=== PATIENT | male | born 1950 | race Caucasian/White ===

== ENCOUNTER 2019-03-26 13:52 | Observation (INO) | payer MEDICARE ==
--- NOTE | 2019-03-26 14:23 | ED ---
General Adult HPI - General Chief complaint: Chest Pain Stated complaint: Chest pain Time Seen by Provider: 03/26/19 14:09 Source: patient, RN notes reviewed, old records reviewed Mode of arrival: ambulatory Limitations: no limitations - History of Present Illness Initial comments: 68-year-old male presenting for evaluation of intermittent chest pain. Patient's symptoms have been ongoing for the past 24-48 hours. He is having episodic left-sided chest pain. This is nonexertional. Nonradiating. Described as sharp in nature lasting usually just seconds. Not worse with deep inspiration. He does have a mild cough which she's had for some time. He states he's had similar symptoms within the past several months and has not seen a physician about these symptoms. Denies fever but has had night sweats daily for several months. Denies weight loss. Denies lower extremity pain or swelling. No known history of CAD. - Related Data Home Medications Medication Instructions Recorded Confirmed No Known Home Medications 03/26/19 03/26/19 Allergies Allergy/AdvReac Type Severity Reaction Status Date / Time No Known Allergies Allergy Verified 03/26/19 14:54 Review of Systems ROS Statement: Those systems with pertinent positive or pertinent negative responses have been documented in the HPI. ROS Other: All systems not noted in ROS Statement are negative. Past Medical History Past Medical History: No Reported History History of Any Multi-Drug Resistant Organisms: None Reported Past Surgical History: Hernia Repair Past Psychological History: No Psychological Hx Reported Smoking Status: Current every day smoker Past Alcohol Use History: Daily Past Drug Use History: None Reported General Exam Limitations: no limitations General appearance: alert, in no apparent distress Head exam: Present: atraumatic, normocephalic Eye exam: Present: normal appearance, PERRL ENT exam: Present: normal exam Neck exam: Present: normal inspection. Absent: tenderness, meningismus Respiratory exam: Present: normal lung sounds bilaterally. Absent: respiratory distress, wheezes, rhonchi Cardiovascular Exam: Present: regular rate, normal rhythm, normal heart sounds GI/Abdominal exam: Present: soft. Absent: distended, tenderness, guarding Extremities exam: Present: normal inspection, normal capillary refill. Absent: pedal edema, calf tenderness Neurological exam: Present: alert, oriented X3 Psychiatric exam: Present: normal affect, normal mood Skin exam: Present: warm, dry, intact. Absent: cyanosis, diaphoretic Course Vital Signs 03/26/19 03/26/19 03/26/19 13:53 14:15 14:30 Temperature 97.9 F Pulse Rate 74 71 Pulse Rate [ 72 [employer] ] Respiratory 9 L 18 Rate Blood Pressure 173/91 152/103 O2 Sat by Pulse 98 95 Oximetry EKG Findings - EKG Comments: EKG Findings:: EKG: Normal sinus rhythm, rate of 67, NJ interval 162, QRS duration 86, QTC 460, no ST segment elevation Medical Decision Making - Medical Decision Making 68-year-old male with intermittent chest pain. Pain is described as atypical. Patient is several risk factors, workup initiated emergency department. Patient's chest x-ray negative for pneumothorax or focal pneumonia. He has a normal CBC and normal CMP. He has an initial troponin which is negative. Has a mildly elevated d-dimer is 0.73. 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 Patient's pain is atypical however he has several risk factors. He will be kept in observation for serial cardiac enzymes, telemetry, cardiology consultation. Case discussed with admitting physician Dr. Muñiz - Lab Data Result diagrams: 03/26/19 14:30 03/26/19 14:30 Lab Results 03/26/19 03/26/19 03/26/19 Range/Units 14:30 14:30 14:30 WBC 6.5 (3.8-10.6) k/uL RBC 4.32 (4.30-5.90) m/uL Hgb 15.8 (13.0-17.5) gm/dL Hct 45.9 (39.0-53.0) % MCV 106.2 H (80.0-100.0) fL MCH 36.5 H (25.0-35.0) pg MCHC 34.4 (31.0-37.0) g/dL RDW 13.6 (11.5-15.5) % Plt Count 256 (150-450) k/uL Neutrophils % 57 % Lymphocytes % 28 % Monocytes % 8 % Eosinophils % 3 % Basophils % 1 % Neutrophils # 3.7 (1.3-7.7) k/uL Lymphocytes # 1.8 (1.0-4.8) k/uL Monocytes # 0.5 (0-1.0) k/uL Eosinophils # 0.2 (0-0.7) k/uL Basophils # 0.1 (0-0.2) k/uL Macrocytosis Moderate PT 9.7 (9.0-12.0) sec INR 0.9 (<1.2) APTT 25.3 (22.0-30.0) sec D-Dimer 0.73 H (<0.60) mg/L FEU Sodium 140 (137-145) mmol/L Potassium 4.3 (3.5-5.1) mmol/L Chloride 111 H (98-107) mmol/L Carbon Dioxide 20 L (22-30) mmol/L Anion Gap 9 mmol/L BUN 18 (9-20) mg/dL Creatinine 1.07 (0.66-1.25) mg/dL Est GFR (CKD-EPI)AfAm 84 (>60 ml/min/1.73 sqM) Est GFR (CKD-EPI)NonAf 73 (>60 ml/min/1.73 sqM) Glucose 110 H (74-99) mg/dL Calcium 9.8 (8.4-10.2) mg/dL Magnesium 2.2 (1.6-2.3) mg/dL Total Bilirubin 1.0 (0.2-1.3) mg/dL AST 58 (17-59) U/L ALT 64 (21-72) U/L Alkaline Phosphatase 89 (38-126) U/L Troponin I (0.000-0.034) ng/mL NT-Pro-B Natriuret Pep pg/mL Total Protein 7.6 (6.3-8.2) g/dL Albumin 4.6 (3.5-5.0) g/dL Lipase 315 H (23-300) U/L 03/26/19 03/26/19 Range/Units 14:30 14:30 WBC (3.8-10.6) k/uL RBC (4.30-5.90) m/uL Hgb (13.0-17.5) gm/dL Hct (39.0-53.0) % MCV (80.0-100.0) fL MCH (25.0-35.0) pg MCHC (31.0-37.0) g/dL RDW (11.5-15.5) % Plt Count (150-450) k/uL Neutrophils % % Lymphocytes % % Monocytes % % Eosinophils % % Basophils % % Neutrophils # (1.3-7.7) k/uL Lymphocytes # (1.0-4.8) k/uL Monocytes # (0-1.0) k/uL Eosinophils # (0-0.7) k/uL Basophils # (0-0.2) k/uL Macrocytosis PT (9.0-12.0) sec INR (<1.2) APTT (22.0-30.0) sec D-Dimer (<0.60) mg/L FEU Sodium (137-145) mmol/L Potassium (3.5-5.1) mmol/L Chloride (98-107) mmol/L Carbon Dioxide (22-30) mmol/L Anion Gap mmol/L BUN (9-20) mg/dL Creatinine (0.66-1.25) mg/dL Est GFR (CKD-EPI)AfAm (>60 ml/min/1.73 sqM) Est GFR (CKD-EPI)NonAf (>60 ml/min/1.73 sqM) Glucose (74-99) mg/dL Calcium (8.4-10.2) mg/dL Magnesium (1.6-2.3) mg/dL Total Bilirubin (0.2-1.3) mg/dL AST (17-59) U/L ALT (21-72) U/L Alkaline Phosphatase (38-126) U/L Troponin I <0.012 (0.000-0.034) ng/mL NT-Pro-B Natriuret Pep 115 pg/mL Total Protein (6.3-8.2) g/dL Albumin (3.5-5.0) g/dL Lipase (23-300) U/L Disposition Clinical Impression: Chest pain Disposition: ADMITTED IP TO THIS HOSP Condition: Stable Is patient prescribed a controlled substance at d/c from ED?: No Referrals: Jenny Mae MD [Primary Care Provider] - 1-2 days Decision to Admit Reason: Admit from EC Decision Date: 03/26/19 Decision Time: 17:24
[2019-03-26 14:48] LABS: Basophils # (A) 0.1 k/uL (0-0.2); Basophils % (A) 1 %; Eosinophils # (A) 0.2 k/uL (0-0.7); Eosinophils % (A) 3 %; HCT 45.9 % (39.0-53.0); HGB 15.8 gm/dL (13.0-17.5); Lymphocytes # (A) 1.8 k/uL (1.0-4.8); Lymphocytes % (A) 28 %; MCH 36.5 pg (25.0-35.0); MCHC 34.4 g/dL (31.0-37.0); MCV 106.2 fL (80.0-100.0); Macrocytosis Moderate; Mean Platelet Volume 7.3; Monocytes # (A) 0.5 k/uL (0-1.0); Monocytes % (A) 8 %; Neutrophils # (A) 3.7 k/uL (1.3-7.7); Neutrophils % (A) 57 %; Platelet Count 256 k/uL (150-450); RBC 4.32 m/uL (4.30-5.90); RDW 13.6 % (11.5-15.5); WBC 6.5 k/uL (3.8-10.6)
--- NOTE | 2019-03-26 14:52 | XR ---
EXAMINATION TYPE: XR chest 2V DATE OF EXAM: 03/26/2019 COMPARISON: NONE TECHNIQUE: PA and lateral views submitted. HISTORY: Chest pain FINDINGS: The lungs are clear and there is no pneumothorax, pleural effusion, or focal pneumonia. Biapical pl eural thickening. No overt failure. Hyperinflation suggests COPD. Heart size normal. IMPRESSION: 1. No acute process.
[2019-03-26 14:53] VITALS: RESP 18
[2019-03-26 15:06] LABS: INR 0.9 (<1.2); Partial Thromboplastin Time 25.3 sec (22.0-30.0); Prothrombin Time 9.7 sec (9.0-12.0)
[2019-03-26 15:11] LABS: Albumin 4.6 g/dL (3.5-5.0); Calcium 9.8 mg/dL (8.4-10.2); Magnesium 2.2 mg/dL (1.6-2.3); Potassium 4.3 mmol/L (3.5-5.1); Total Protein 7.6 g/dL (6.3-8.2)
[2019-03-26 15:15] LABS: D-Dimer 0.73 mg/L FEU (<0.60)
--- NOTE | 2019-03-26 16:46 | CT ---
EXAMINATION TYPE: CT angio chest DATE OF EXAM: 03/26/2019 COMPARISON: None HISTORY: Shortness of breath and cough CT DLP: 373.6 mGycm Automated exposure control for dose reduction was used. CONTRAST: Performed with IV Contrast, patient injected with 100 mL of Isovue 370. There are 3-D post processed images. There is some poorly marginated 2.5 cm stellate infiltrate at the right lung apex. There is no pulmon erickson mass. There is no mediastinal adenopathy. Thoracic aorta appears intact without evidence of disse ction. Ascending aorta measures 3.9 cm. There are no hilar masses. There is normal contrast opacifica tion of the pulmonary arteries. There are no filling defects. The bony thorax is intact. There is no pleural effusion. There is no pericardial effusion. Upper abdominal soft tissues are intact. IMPRESSION: No evidence of pulmonary embolism. Stellate infiltrate right upper lobe at the apex could relate to s carring. Follow-up exam recommended to show long-term stability or clearing. Borderline aneurysm of the aortic arch.
[2019-03-26] MEDS ORDERED: ASPIRIN 325 MG TAB PO STA (17:21)
[2019-03-26] MEDS ORDERED: ONDANSETRON 4 MG/2 ML VIAL IVP PRN (17:21)
[2019-03-26] MEDS ORDERED: MORPHINE SULFATE 4 MG/ML SYRINGE IV PRN (17:21)
[2019-03-26] MEDS ORDERED: NALOXONE 0.4 MG/ML 1 ML VIAL IV PRN (17:21)
[2019-03-26] MEDS ORDERED: ACETAMINOPHEN TAB 325 MG TAB PO PRN (17:21)
[2019-03-26] MEDS ORDERED: LORazepam 2 MG/ML INJ IV PRN ×3 (19:20)
--- NOTE | 2019-03-27 08:38 | P.CRDCN ---
History of Present Illness Consult reason: chest pain History of present illness: This is Dr. Lamb dictating a consult on this patient The patient was interviewed and examined by me IMPRESSION / ASSESSMENT: Intermittent brief atypical chest discomfort him a very fleeting in nature lasting for seconds No associated symptoms No abdominal symptoms Regular smoker Regular heavy alcohol consumption Abnormal lipase Normal twelve-lead ECG 2 Normal cardiac enzymes Denies diabetes or hypertension, follows with Dr. Mae Ascending aorta 3.9 cm node dissection PLAN: Repeat lipase GI workup him a evaluate pancreas Outpatient cardiac workup Smoking cessation Discontinue regular alcohol consumption Hemoglobin A1c Check lipid panel Discussed with the patient Outpatient follow-up with Dr. Lamb HPI Impression presenting with intermittent fleeting chest discomfort left precordial off and on very brief each time and no associated symptoms No dizziness lightheadedness no shortness of breath no upper back discomfort No GI symptoms ROS: No fever chills or rigors, no cough, phlegm or expectoration, no nausea, vomiting or diarrhea, no hematuria, dysuria, no musculoskeletal complaints, no strokes or seizures, no skin lesions. EXAMINATION: Blood pressure 126/77 mmHg pulse rate in the 60s afebrile bruits no JVD no thyromegaly Normal heart sounds Our breath sounds no rhonchi no crackles Abdomen normal exam soft nontender Normal heart sounds no murmurs or gallop. REVIEW OF LABS, ECG & MEDICAL DATA hemoglobin 15.8, electrolytes normal, BUN/creatinine normal Cardiac enzymes 3 Number ECGs 2 Abnormal lipase Past Medical History Past Medical History: No Reported History History of Any Multi-Drug Resistant Organisms: None Reported Past Surgical History: Hernia Repair Past Psychological History: No Psychological Hx Reported Smoking Status: Current every day smoker Past Alcohol Use History: Daily Past Drug Use History: None Reported Medications and Allergies Home Medications Medication Instructions Recorded Confirmed Type No Known Home Medications 03/26/19 03/26/19 History Allergies Allergy/AdvReac Type Severity Reaction Status Date / Time No Known Allergies Allergy Verified 03/26/19 14:54 Physical Exam Vitals: Vital Signs Temp Pulse Pulse Pulse Resp BP BP 03/27/19 07:23 97.7 F 59 L 18 159/95 03/27/19 04:00 97.9 F 58 L 18 108/67 03/27/19 03:11 18 03/26/19 23:29 18 03/26/19 23:09 97.6 F 60 18 126/77 03/26/19 20:00 18 03/26/19 18:31 97.8 F 69 18 163/100 03/26/19 17:30 97.8 F 60 18 150/90 03/26/19 17:00 59 L 145/91 03/26/19 16:30 145/91 03/26/19 16:00 64 151/96 03/26/19 15:30 151/96 03/26/19 15:00 65 152/103 03/26/19 14:30 71 18 152/103 03/26/19 14:15 72 03/26/19 13:53 97.9 F 74 9 L 173/91 Pulse Ox 03/27/19 07:23 96 03/27/19 04:00 99 03/27/19 03:11 03/26/19 23:29 03/26/19 23:09 97 03/26/19 20:00 03/26/19 18:31 98 03/26/19 17:30 97 03/26/19 17:00 03/26/19 16:30 03/26/19 16:00 03/26/19 15:30 03/26/19 15:00 97 03/26/19 14:30 95 03/26/19 14:15 03/26/19 13:53 98 Intake and Output 03/26/19 03/27/19 03/27/19 22:59 06:59 14:59 Other: Voiding Method Toilet Toilet # Voids 1 1 Weight 94.03 kg Results 03/26/19 14:30 03/26/19 14:30 Cardiac Enzymes 03/26/19 03/26/19 03/26/19 Range/Units 14:30 14:30 19:55 AST 58 (17-59) U/L Troponin I <0.012 <0.012 (0.000-0.034) ng/mL 03/27/19 Range/Units 02:42 AST (17-59) U/L Troponin I <0.012 (0.000-0.034) ng/mL Coagulation 03/26/19 Range/Units 14:30 PT 9.7 (9.0-12.0) sec APTT 25.3 (22.0-30.0) sec CBC 03/26/19 Range/Units 14:30 WBC 6.5 (3.8-10.6) k/uL RBC 4.32 (4.30-5.90) m/uL Hgb 15.8 (13.0-17.5) gm/dL Hct 45.9 (39.0-53.0) % Plt Count 256 (150-450) k/uL Comprehensive Metabolic Panel 03/26/19 Range/Units 14:30 Sodium 140 (137-145) mmol/L Potassium 4.3 (3.5-5.1) mmol/L Chloride 111 H (98-107) mmol/L Carbon Dioxide 20 L (22-30) mmol/L BUN 18 (9-20) mg/dL Creatinine 1.07 (0.66-1.25) mg/dL Glucose 110 H (74-99) mg/dL Calcium 9.8 (8.4-10.2) mg/dL AST 58 (17-59) U/L ALT 64 (21-72) U/L Alkaline Phosphatase 89 (38-126) U/L Total Protein 7.6 (6.3-8.2) g/dL Albumin 4.6 (3.5-5.0) g/dL Current Medications Generic Name Dose Route Start Last Admin Trade Name Freq PRN Reason Stop Dose Admin Acetaminophen 650 mg 03/26/19 17:21 Tylenol Tab PO Q6HR PRN Mild Pain or Fever > 100.5 Aspirin 325 mg 03/27/19 09:00 Aspirin PO DAILY NALINI Lorazepam 1 mg 03/26/19 19:20 Ativan IV Q2HR PRN CIWA 8 or 9 Lorazepam 1 mg 03/26/19 19:20 Ativan IV Q1HR PRN CIWA 10 to 15 Lorazepam 2 mg 03/26/19 19:20 Ativan IV 03/28/19 19:20 Q10M PRN CIWA 16 or higher Morphine Sulfate 4 mg 03/26/19 17:21 Morphine Sulfate (Inj) IV Q4HR PRN Severe Pain Naloxone HCl 0.2 mg 03/26/19 17:21 Narcan IV Q2M PRN Opioid Reversal Ondansetron HCl 4 mg 03/26/19 17:21 Zofran IVP Q8HR PRN Nausea And Vomiting Intake and Output 03/26/19 03/27/19 03/27/19 22:59 06:59 14:59 Other: Voiding Method Toilet Toilet # Voids 1 1 Weight 94.03 kg 03/26/19 14:30 03/26/19 14:30
[2019-03-27] MEDS ORDERED: ASPIRIN 325 MG TAB PO SCH (09:00)
[2019-03-27 09:51] LABS: Cholesterol 229 mg/dL (<200); HDL Cholesterol 55 mg/dL (40-60); LDL Cholesterol,Calculated 146 mg/dL (0-99); Triglycerides 141 mg/dL (<150)
[2019-03-27 15:56] VITALS: BP 144/82; PULSE 53; TEMP 98.1
--- NOTE | 2019-03-27 18:17 | P.HPIM ---
History of Present Illness H&P Date: 03/27/19 Chief Complaint: Intermittent chest pain Mr. Dale is a 68-year-old male with no significant past medical history coming in with a chief complaint of intermittent chest pain. Patient states that he has been chest pain on and off for the past 24-48 hours. Mostly in the left side of the chest, nonradiating. Patient described as a sharp pain lasting only for a few seconds. No radiation to the left shoulder on the left jaw. Not associated with nausea vomiting or diaphoresis. Patient denies having any cough or difficulty in breathing. Patient denies having any fevers chills or rigors, no night sweats. Patient denies having any swelling of his lower extremities. Patient has history of alcohol dependence. He drinks at least 4-5 times a week. Patient's last drink was on the morning of admission. In the emergency department patient had chest x-ray that was unremarkable, troponins that are less than 0.012. As the d-dimer was slightly elevated at 0.73 patient had a CTA of the chest that was negative for any pulmonary embolus. There is mild elevation of his lipase at 315. Patient denied having any other active complaints. Review of Systems REVIEW OF SYSTEMS: PSYCH: Normal psychiatric exam NEURO:No c/o weakness of the extremties, No facial droop, No speech abnormalities. VASCULAR: Peripheral nervous system within the normal limits no edema HEMATOLOGIC: No history of easy bleeding and bruising . No recent infections . RESPIRATORY: No cough, No SOB, No chest discomfort. IMMUNE: No infections INTEGUMENT: no rashes OPHTHALMOLOGIC: No blurry vision and no eye discharge : No dysuria or hematuria CARDIAC: As per HPI MUSCULOSKELETAL : No Aches or pains in the joints or muscles. GI: No abdominal pain, Nausea or vomiting. No constipation or diarrhea. Past Medical History Past Medical History: No Reported History History of Any Multi-Drug Resistant Organisms: None Reported Past Surgical History: Hernia Repair Past Psychological History: No Psychological Hx Reported Smoking Status: Current every day smoker Past Alcohol Use History: Daily Past Drug Use History: None Reported Medications and Allergies Home Medications Medication Instructions Recorded Confirmed Type No Known Home Medications 03/26/19 03/26/19 History Allergies Allergy/AdvReac Type Severity Reaction Status Date / Time No Known Allergies Allergy Verified 03/26/19 14:54 Physical Exam Vitals: Vital Signs Temp Pulse Pulse Resp BP Pulse Ox 03/27/19 16:00 53 L 18 03/27/19 15:55 98.1 F 53 L 18 144/82 97 03/27/19 12:00 56 L 18 03/27/19 11:39 98.0 F 56 L 18 147/88 98 03/27/19 08:00 59 L 18 03/27/19 07:23 97.7 F 59 L 18 159/95 96 03/27/19 04:00 97.9 F 58 L 18 108/67 99 03/27/19 03:11 18 03/26/19 23:29 18 03/26/19 23:09 97.6 F 60 18 126/77 97 03/26/19 20:00 18 03/26/19 18:31 97.8 F 69 18 163/100 98 Intake and Output 03/27/19 03/27/19 03/27/19 06:59 14:59 22:59 Intake Total 360 Balance 360 Intake: Oral 360 Other: Voiding Method Toilet Toilet Toilet # Voids 1 1 GEN. APPEARANCE: alert, in no apparent distress HEENT: Normocephalic. PERRLA. No pallor. No icterus. No JVD. RESPIRATORY EXAM: normal lung sounds bilaterally. No wheeze or crackles. CARDIOVASCULAR EXAM: regular rate, normal rhythm, normal heart sounds. No additional sounds. GI/ABDOMINAL EXAM: soft, normal bowel sounds. No tenderness or guarding or rigidity EXTREMITIES EXAM: No pedal edema NEUROLOGICAL EXAM: alert, oriented X3, no focal deficits PSYCHIATRIC EXAM: normal affect, normal mood SKIN EXAM: No rash Results CBC & Chem 7: 03/26/19 14:30 03/26/19 14:30 Labs: Abnormal Lab Results - Last 24 Hours (Table) 03/27/19 Range/Units 08:49 Cholesterol 229 H (<200) mg/dL LDL Cholesterol, Calc 146 H (0-99) mg/dL Thrombosis Risk Factor Assmnt - Choose All That Apply Any of the Below Risk Factors Present?: No Other Risk Factors: Yes Each Risk Factor Represents 2 Points: Age 61-74 years Thrombosis Risk Factor Assessment Total Risk Factor Score: 2 Thrombosis Risk Factor Assessment Level: Low Risk Assessment and Plan Assessment: ASSESSMENT Atypical chest pain Elevated lipase Alcohol dependence Nicotine dependence PLAN: Patient was admitted for atypical chest pain to rule out acute coronary syndrome. Serial troponins have been less than 0.0123. CT of the chest is negative for PE. Patient is completely asymptomatic currently. Patient was extensively counseled on alcohol abstinence and to quit smoking. Cardiology has evaluated the patient and cleared him for discharge.
--- NOTE | 2019-03-27 18:19 | P.DS ---
Providers Date of admission: 03/26/19 17:21 Expected date of discharge: 03/27/19 Attending physician: Hailee Muñiz Consults: 03/26/19 17:21 Consult Physician Routine Consulting Provider: Yon Metzger Consult Reason/Comments: CP Do you want consulting provider notified?: Yes Primary care physician: Tu Alvarado [facility] Course: Mr. Dale is a 68-year-old male with no significant past medical history coming in with a chief complaint of intermittent chest pain. Patient states that he has been chest pain on and off for the past 24-48 hours. Mostly in the left side of the chest, nonradiating. Patient described as a sharp pain lasting only for a few seconds. No radiation to the left shoulder on the left jaw. Not associated with nausea vomiting or diaphoresis. Patient denies having any cough or difficulty in breathing. Patient denies having any fevers chills or rigors, no night sweats. Patient denies having any swelling of his lower extremities. Patient has history of alcohol dependence. He drinks at least 4-5 times a week. Patient's last drink was on the morning of admission. In the emergency department patient had chest x-ray that was unremarkable, troponins that are less than 0.012. As the d-dimer was slightly elevated at 0.73 patient had a CTA of the chest that was negative for any pulmonary embolus. There is mild elevation of his lipase at 315. Patient denied having any other active complaints. DISCHARGE DIAGNOSIS Atypical chest pain Elevated lipase Alcohol dependence Nicotine dependence Patient was admitted for atypical chest pain to rule out acute coronary syndrome. Serial troponins have been less than 0.0123. CT of the chest is negative for PE. Patient is completely asymptomatic currently. Patient was extensively counseled on alcohol abstinence and to quit smoking. Cardiology has evaluated the patient and cleared him for discharge. Follow-up: Patient is advised to follow with his primary care physician Dr. Jenny Mae 1-2 DAYS and cardiology in 1 week. If he has recurrence of his chest pain symptoms to come to the ER. Patient Condition at Discharge: Stable Plan - Discharge Summary Discharge Rx Participant: No New Discharge Prescriptions: Continue No Known Home Medications Discharge Medication List No Known Home Medications 03/26/19 [History] Follow up Appointment(s)/Referral(s): Juan Lamb MD [STAFF PHYSICIAN] - 1 Week (Follow-up with Dr. Lamb/Jyothi Woodard March, at 9 AM ) Jenny Mae MD [Primary Care Provider] - 1-2 days
[2019-03-27 18:41] LABS: Hemoglobin A1C 5.1 % (4.0-6.0)
== END 2019-03-27 18:43 | disposition home or self-care (01) ==
LOC: EC 13:52 → 1SOBS 17:21
PROVIDERS: ADMIT Internal Medicine; ATTEND Internal Medicine
DX: R07.89 Other chest pain (principal); R74.8 Abnormal levels of other serum enzymes; F17.200 Nicotine dependence, unspecified, uncomplicated
CPT/HCPCS: 93005 ×2; 99285; 36415; 85379; 83880; 80061; 80053; 83690 ×2; 83735; 84484 ×2; 85025; 85610; 85730; 83036; 71046; 71275; G0378 ×2; Q9967

== ENCOUNTER → 2019-07-01 | Outpatient (CLI) | payer MEDICARE ==
[2019-07-01 16:38] LABS: African American GFR (CKD) 72.6 (60.0-200.0); Anion Gap 7.3 mmol/L (4.00-12.00); BUN/Creat Ratio 13.33 Ratio (12.00-20.00); Calcium 9.9 mg/dL (8.7-10.3); Carbon Dioxide 24.7 mmol/L (21.6-31.8); Chol/HDL Ratio 2.27; LDL Cholesterol,Calculated 69.2 mg/dL (0.0-131.0); Non-African American GFR(CKD) 62.6 (60.0-200.0); Potassium 4.8 mmol/L (3.5-5.5); VLDL Calculation 15.8 mg/dL (5.00-40.00)
== END | disposition home or self-care (01) ==
LOC: LABWHC1 08:20
PROVIDERS: ATTEND Physician Assistant
DX: I10 Essential (primary) hypertension (principal); E78.5 Hyperlipidemia, unspecified
CPT/HCPCS: 36415; 80048; 80061

== ENCOUNTER → 2021-02-19 | Outpatient (CLI) | payer MEDICARE ==
[2021-02-19 14:59] LABS: HCT 46.9 % (39.6-50.0); HGB 16.2 g/dL (13.0-17.0); MCH 35.7 pg (27.0-32.0); MCHC 34.5 g/dL (32.0-37.0); MCV 103.3 fL (80.0-97.0); Mean Platelet Volume 11.2 fL (9.5-12.2); Platelet Count 239 X 10*3/uL (140-440); RBC 4.54 X 10*6/uL (4.40-5.60); RDW 14.1 % (11.5-14.5); WBC 8.11 X 10*3/uL (4.50-10.00)
[2021-02-19 15:58] LABS: African American GFR (CKD) 71.6 (60.0-200.0); Albumin 4.8 g/dL (3.8-4.9); BUN/Creat Ratio 14.83 Ratio (12.00-20.00); Blood Urea Nitrogen 17.8 mg/dL (9.0-27.0); Carbon Dioxide 22.4 mmol/L (21.6-31.8); Chol/HDL Ratio 2.74 Ratio; Globulin 2.4 g/dL (1.6-3.3); HDL Cholesterol 55.1 mg/dL (40.00-60.00); Non-African American GFR(CKD) 61.8 (60.0-200.0); Potassium 4.6 mmol/L (3.5-5.5); T4, Free (Free Thyroxine) 1.34 ng/dL (0.800-1.800); Total Bilirubin 1.6 mg/dL (0.30-1.20); Total Protein 7.2 g/dL (6.2-8.2); Triglycerides 89.6 mg/dL (0.00-149.00); VLDL Calculation 17.92 mg/dL (5.00-40.00)
== END | disposition home or self-care (01) ==
LOC: LABWHC1 09:22
PROVIDERS: ATTEND Nurse Practitioner Adult Health
DX: Z00.00 Encounter for general adult medical examination without abnormal findings (principal); E78.5 Hyperlipidemia, unspecified; I10 Essential (primary) hypertension; R53.83 Other fatigue
CPT/HCPCS: 36415; 80053; 80061; 82306; 83721; 83735; 84439; 84443; 84481; 85027

== ENCOUNTER → 2021-12-22 | Outpatient (CLI) | payer MEDICARE ==
[2021-12-22 17:04] LABS: Basophils # (A) 0.07 X 10*3/uL (0.00-0.10); Basophils % (A) 0.8 %; Eosinophils # (A) 0.14 X 10*3/uL (0.04-0.35); Eosinophils % (A) 1.5 %; HCT 43.9 % (39.6-50.0); HGB 14.6 g/dL (13.0-17.0); Immature Grans, Automated 0.3 %; Lymphocytes # (A) 2.76 X 10*3/uL (0.90-5.00); Lymphocytes % (A) 30.3 %; MCHC 33.3 g/dL (32.0-37.0); MCV 102.3 fL (80.0-97.0); Mean Platelet Volume 11.2 fL (9.5-12.2); Monocytes # (A) 0.82 X 10*3/uL (0.20-1.00); NRBC Per 100 WBC 0 /100 WBCS (0.0-0.0); Neutrophils # (A) 5.29 X 10*3/uL (1.80-7.70); Neutrophils % (A) 58.1 %; Platelet Count 238 X 10*3/uL (140-440); RBC 4.29 X 10*6/uL (4.40-5.60); RDW 14.6 % (11.5-14.5); WBC 9.11 X 10*3/uL (4.50-10.00)
[2021-12-22 17:27] LABS: ALT 30 U/L (10-49); AST 35 U/L (14-35); Albumin 4.8 g/dL (3.8-4.9); Albumin/Globulin Ratio 2.09 (1.60-3.17); Alkaline Phosphatase 82 U/L (41-126); BUN/Creat Ratio 12.71 Ratio (12.00-20.00); Blood Urea Nitrogen 17.8 mg/dL (9.0-27.0); Calcium 10.2 mg/dL (8.7-10.3); Carbon Dioxide 23.6 mmol/L (20.0-27.5); Chloride 108 mmol/L (96-109); Chol/HDL Ratio 2.99 Ratio; Globulin 2.3 g/dL (1.6-3.3); Glucose 125 mg/dL (70-110); LDL Cholesterol,Calculated 72.7 mg/dL (0.0-131.0); Magnesium 1.9 mg/dL (1.5-2.4); Non-African American GFR(CKD) 50.9 (60.0-200.0); Potassium 5.3 mmol/L (3.5-5.5); Sodium 144 mmol/L (135-145); Total Protein 7.1 g/dL (6.2-8.2); VLDL Calculation 19.78 mg/dL (5.00-40.00)
== END | disposition home or self-care (01) ==
LOC: LABWHC1 10:36
PROVIDERS: ATTEND Internal Medicine Clinical Cardiac Electrophysiology
DX: I10 Essential (primary) hypertension (principal); E78.5 Hyperlipidemia, unspecified; R00.2 Palpitations
CPT/HCPCS: 36415; 80053; 80061; 83735; 84443; 85025

== ENCOUNTER 2022-04-06 22:55 | Emergency (ER) | payer MEDICARE ==
[2022-04-06] MEDS ORDERED: MORPHINE SULFATE 2 MG/ML SYRINGE IVP STA (23:08)
[2022-04-06] MEDS ORDERED: SODIUM CHLORIDE 0.9% 1,000 ML IV STA (23:08)
[2022-04-06] MEDS ORDERED: ONDANSETRON 4 MG/2 ML VIAL IVP STA (23:08)
--- NOTE | 2022-04-06 23:08 | ED ---
Abdominal Pain HPI - General Stated Complaint: Abdominal pain Time Seen by Provider: 04/06/22 23:07 Source: RN notes reviewed, old records reviewed Limitations: no limitations - History of Present Illness Initial Comments: This is a 71-year-old male DF for evaluation. Patient is today presented for evaluation of abdominal pain then patient went to the bathroom with the toilet as he was seen until he had a syncopal episode and was unable to get up. Patient has no headache no chest pain or shortness of breath no abdominal pain currently. No recent travel history or sick contacts no change in medications otherwise been feeling well lately. MD Complaint: abdominal pain, other (Weakness) -: hour(s) Location: diffuse Radiation: none Severity: mild Severity scale (1-10): 3 Quality: stabbing Consistency: constant Improves With: nothing Worsens With: nothing Associated Symptoms: denies other symptoms Treatments Prior to Arrival: other (0) - Related Data Home Medications Medication Instructions Recorded Confirmed No Known Home Medications 03/26/19 03/26/19 Allergies Allergy/AdvReac Type Severity Reaction Status Date / Time No Known Allergies Allergy Verified 03/26/19 14:54 Review of Systems ROS Statement: Those systems with pertinent positive or pertinent negative responses have been documented in the HPI. ROS Other: All systems not noted in ROS Statement are negative. Past Medical History Past Medical History: No Reported History History of Any Multi-Drug Resistant Organisms: None Reported Past Surgical History: Hernia Repair Past Psychological History: No Psychological Hx Reported Past Alcohol Use History: Daily Past Drug Use History: None Reported General Exam Limitations: altered mental status General appearance: alert, in no apparent distress Head exam: Present: atraumatic, normocephalic, normal inspection Eye exam: Present: normal appearance, PERRL, EOMI. Absent: scleral icterus, conjunctival injection, periorbital swelling ENT exam: Present: normal exam, mucous membranes moist Neck exam: Present: normal inspection. Absent: tenderness, meningismus, lymphadenopathy Respiratory exam: Present: normal lung sounds bilaterally. Absent: respiratory distress, wheezes, rales, rhonchi, stridor Cardiovascular Exam: Present: regular rate, normal rhythm, normal heart sounds. Absent: systolic murmur, diastolic murmur, rubs, gallop, clicks GI/Abdominal exam: Present: soft, normal bowel sounds. Absent: distended, tenderness, guarding, rebound, rigid Extremities exam: Present: normal inspection, full ROM, normal capillary refill. Absent: tenderness, pedal edema, joint swelling, calf tenderness Back exam: Present: normal inspection Neurological exam: Present: alert, oriented X3, CN II-XII intact Psychiatric exam: Present: normal affect, normal mood Skin exam: Present: warm, dry, intact, normal color. Absent: rash Course Vital Signs 04/06/22 23:08 Temperature 97.4 F L Pulse Rate 64 Respiratory 16 Rate Blood Pressure 136/80 O2 Sat by Pulse 98 Oximetry - Reevaluation(s) Reevaluation #1: 04/06/22 medical record is reviewed Patient symptoms are improved here in the ER Patient informed of results and questions answered Medical Decision Making - Medical Decision Making 71 male to the emergency department for evaluation patient presents today for evaluation of syncopal event - Lab Data Result diagrams: 04/06/22 23:11 04/06/22 23:11 Lab Results 04/06/22 04/06/22 04/06/22 Range/Units 23:11 23:11 23:11 WBC 8.3 (3.8-10.6) k/uL RBC 4.57 (4.30-5.90) m/uL Hgb 16.0 (13.0-17.5) gm/dL Hct 46.2 (39.0-53.0) % MCV 101.0 H (80.0-100.0) fL MCH 35.0 (25.0-35.0) pg MCHC 34.6 (31.0-37.0) g/dL RDW 13.3 (11.5-15.5) % Plt Count 218 (150-450) k/uL MPV 9.1 Neutrophils % 43 % Lymphocytes % 43 % Monocytes % 7 % Eosinophils % 3 % Basophils % 1 % Neutrophils # 3.6 (1.3-7.7) k/uL Lymphocytes # 3.6 (1.0-4.8) k/uL Monocytes # 0.6 (0-1.0) k/uL Eosinophils # 0.2 (0-0.7) k/uL Basophils # 0.1 (0-0.2) k/uL Sodium 145 (137-145) mmol/L Potassium 4.5 (3.5-5.1) mmol/L Chloride 110 H (98-107) mmol/L Carbon Dioxide 23 (22-30) mmol/L Anion Gap 12 mmol/L BUN 24 H (9-20) mg/dL Creatinine 1.33 H (0.66-1.25) mg/dL Est GFR (CKD-EPI)AfAm 63 (>60 ml/min/1.73 sqM) Est GFR (CKD-EPI)NonAf 55 (>60 ml/min/1.73 sqM) Glucose 88 (74-99) mg/dL Lactic Ac Sepsis Rflx Plasma Lactic Acid Simone 3.7 H* (0.7-2.0) mmol/L Calcium 9.9 (8.4-10.2) mg/dL Total Bilirubin 1.0 (0.2-1.3) mg/dL AST 44 (17-59) U/L ALT 37 (4-49) U/L Alkaline Phosphatase 77 (38-126) U/L Troponin I (0.000-0.034) ng/mL Total Protein 7.3 (6.3-8.2) g/dL Albumin 4.7 (3.5-5.0) g/dL Amylase 69 (30-110) U/L Lipase 298 (23-300) U/L Serum Alcohol mg/dL 04/06/22 04/06/22 04/07/22 Range/Units 23:11 23:53 23:11 WBC (3.8-10.6) k/uL RBC (4.30-5.90) m/uL Hgb (13.0-17.5) gm/dL Hct (39.0-53.0) % MCV (80.0-100.0) fL MCH (25.0-35.0) pg MCHC (31.0-37.0) g/dL RDW (11.5-15.5) % Plt Count (150-450) k/uL MPV Neutrophils % % Lymphocytes % % Monocytes % % Eosinophils % % Basophils % % Neutrophils # (1.3-7.7) k/uL Lymphocytes # (1.0-4.8) k/uL Monocytes # (0-1.0) k/uL Eosinophils # (0-0.7) k/uL Basophils # (0-0.2) k/uL Sodium (137-145) mmol/L Potassium (3.5-5.1) mmol/L Chloride (98-107) mmol/L Carbon Dioxide (22-30) mmol/L Anion Gap mmol/L BUN (9-20) mg/dL Creatinine (0.66-1.25) mg/dL Est GFR (CKD-EPI)AfAm (>60 ml/min/1.73 sqM) Est GFR (CKD-EPI)NonAf (>60 ml/min/1.73 sqM) Glucose (74-99) mg/dL Lactic Ac Sepsis Rflx Y Plasma Lactic Acid Simone (0.7-2.0) mmol/L Calcium (8.4-10.2) mg/dL Total Bilirubin (0.2-1.3) mg/dL AST (17-59) U/L ALT (4-49) U/L Alkaline Phosphatase (38-126) U/L Troponin I <0.012 (0.000-0.034) ng/mL Total Protein (6.3-8.2) g/dL Albumin (3.5-5.0) g/dL Amylase (30-110) U/L Lipase (23-300) U/L Serum Alcohol 38 mg/dL - EKG Data -: EKG Interpreted by Me (EKG is sinus 63 MA 181 QRS 90 QTC 444) - Radiology Data Radiology results: report reviewed (CT of the abdomen and pelvis negative for acute disease), image reviewed Disposition Clinical Impression: Dehydration, Syncope, Abdominal pain Disposition: HOME SELF-CARE Condition: Good Instructions (If sedation given, give patient instructions): Dizziness (ED), Abdominal Pain (ED) Is patient prescribed a controlled substance at d/c from ED?: No Referrals: None,Stated [Primary Care Provider] - 1-2 days Time of Disposition: 01:40
[2022-04-06 23:11] VITALS: BP 136/80; PULSE 64; RESP 16; TEMP 97.4
[2022-04-06 23:33] LABS: Basophils # (A) 0.1 k/uL (0-0.2); Basophils % (A) 1 %; Eosinophils # (A) 0.2 k/uL (0-0.7); Eosinophils % (A) 3 %; HCT 46.2 % (39.0-53.0); Lymphocytes # (A) 3.6 k/uL (1.0-4.8); Lymphocytes % (A) 43 %; MCHC 34.6 g/dL (31.0-37.0); Mean Platelet Volume 9.1; Monocytes # (A) 0.6 k/uL (0-1.0); Monocytes % (A) 7 %; Neutrophils # (A) 3.6 k/uL (1.3-7.7); Neutrophils % (A) 43 %; Platelet Count 218 k/uL (150-450); RBC 4.57 m/uL (4.30-5.90); RDW 13.3 % (11.5-15.5); WBC 8.3 k/uL (3.8-10.6)
[2022-04-06 23:52] LABS: Albumin 4.7 g/dL (3.5-5.0); Calcium 9.9 mg/dL (8.4-10.2); Potassium 4.5 mmol/L (3.5-5.1); Total Protein 7.3 g/dL (6.3-8.2)
--- NOTE | 2022-04-07 00:18 | CT ---
EXAMINATION TYPE: CT abdomen pelvis wo con DATE OF EXAM: 04/07/2022 COMPARISON: None HISTORY: Abdominal Pain. CT DLP: 512 mGycm Automated exposure control for dose reduction was used. Images obtained from the diaphragm to the floor the pelvis with no contrast. The lung bases are clear. No pleural effusion. Heart size is normal. No pericardial effusion. Liver a nd spleen are intact. The bowel Not dilated. Stomach is intact. No pancreatic mass. Gallbladder is somewhat contracted. The bile duct s are not dilated. There is no adrenal mass. Kidneys of normal size and contour. There is minimal stranding around the [place] but no significant edema. No hydronephrosis. Ureters are not dilated. No retroperitoneal adenop athy. The bladder distends smoothly. No inguinal hernia. No free fluid in the pelvis. No pelvic mass. Prostate is enlarged and measures 5.3 cm. Appendix is posterior and medial and appears normal. The lumbar spine is intact. No compression fracture. There is disc space narrowing at L5-S1 with scle rosis and vacuum disc. Bony pelvis is intact. The hip joints are intact. IMPRESSION: Enlarged prostate. No acute abnormality of the abdomen and pelvis. Normal appendix.
== END 2022-04-07 01:45 | disposition home or self-care (01) ==
LOC: EC 22:55
DX: E86.0 Dehydration (principal); R55 Syncope and collapse; R10.9 Unspecified abdominal pain
CPT/HCPCS: 36415; 80053; 82150; 83605; 83690; 84484; 85025; 74176; 99285; 96374; 96375; 96361 ×2; G0480; J2405; J2270; 80320